=== PATIENT | female | born 1945 | race Caucasian/White ===

== ENCOUNTER 2016-10-08 15:01 | Emergency (ER) | payer OTHER ==
[~2016-10-08] VITALS: Ht 170.2 cm; Wt 66.2 kg
[~2016-10-08 15:01] MED LIST: AMBIEN 5 MG TABL5 M1 PO; B COMPLEX1 EACH PO; B-COMPLEX PLUS1 EACH PO; CALCIUM 500 +1 EAC5 PO; CELEXA 10 MG TA10 M1 PO; CENTRUM SILVER1 EAC4 PO; CLONAZEPAM 1 MG1 M1 PO; CRESTOR10 MG PO; MIRALAX17 GM PO; NOHOMEMEDICATIONS; NORCO 5-325 TA1 EACH PO; PERCOCET PO; PHENERGAN 25 MG25 M1 PO; VITAMIN B-1100 M1 PO; VITAMIN D1000 UNI2 PO; VITAMINC500 PO; ZOFRAN4 MG PO; ZOLPIDEM TART12.5 M1 PO
[2016-10-08] MEDS ORDERED: NAPROSYN500 MG PO (16:15)
[2016-10-08] MEDS ORDERED: NORFLEX100 MG PO (16:15)
[2016-10-08 16:37] VITALS: BP 145/78
== END 2016-10-08 16:38 | disposition home or self-care (01) ==
LOC: ER 15:01
DX: S46.911A Strain of unspecified muscle, fascia and tendon at shoulder and upper arm level, right arm, initial encounter (principal); R07.89 Other chest pain; I10 Essential (primary) hypertension; F41.9 Anxiety disorder, unspecified; F32.9 Major depressive disorder, single episode, unspecified; F10.99 Alcohol use, unspecified with unspecified alcohol-induced disorder; W18.39XA Other fall on same level, initial encounter; Y93.89 Activity, other specified; Y92.89 Other specified places as the place of occurrence of the external cause; Y99.8 Other external cause status

== ENCOUNTER → 2019-10-17 | Outpatient (CLI) | payer OTHER ==
[~2019-10-17] MED LIST changes: +BUTALB-APAP-CA1 EACH PO; +NAPROSYN500 MG PO; +NORFLEX100 MG PO
[2019-10-17 09:11] LABS: PROTIME 10.2 Seconds (9.3-11.4)
[2019-10-17 10:41] LABS: CSF GLUCOSE 54 mg/dL (40-70); CSF PROTEIN 46 mg/dL (15-45)
[2019-10-17 11:01] LABS: VOLUME 9 ml
[2019-10-17 11:04] LABS: CSF RBC 8 /mm3; CSF WBC 5 /mm3 (0-10)
[2019-10-19 13:08] LABS: CSF VDRL Non Reactive (Non Rea:<1:1)
== END ==
LOC: RAD 07:49
PROVIDERS: Specialist; ATTEND Radiology Vascular & Interventional Radiology
DX: A53.9 Syphilis, unspecified (principal)

== ENCOUNTER 2019-10-20 04:26 | Emergency (ER) | payer OTHER ==
[~2019-10-20] VITALS: Ht 170.2 cm; Wt 64.4 kg
[~2019-10-20 04:26] MED LIST changes: -BUTALB-APAP-CA1 EACH PO
[2019-10-20 05:38] LABS: CALCIUM 8.7 mg/dL (8.5-10.1); CREATININE 0.8 mg/dL (0.6-1.0); POTASSIUM 3.9 mmol/L (3.5-5.1)
[2019-10-20 06:04] LABS: ABSOLUTE NEUTROPHILS 8.3 thou/uL (1.4-8.2); BASOPHILS 0.1 % (0.0-2.0); EOSINOPHILS 0.2 % (0.0-3.0); HEMATOCRIT 34.4 % (37.0-47.0); HEMOGLOBIN 11.9 gm/dL (12.0-15.0); MCHC 34.5 g/dL (28.0-37.0); MCV 86.9 fL (80.0-100.0); MONOCYTES 3.4 % (1.0-8.0); PLATELET COUNT 225 thou/uL (150-400); POLYS 94.3 % (36.0-66.0); RBC 3.96 mil/uL (4.20-5.00); RDW 14.8 % (10.5-14.5); WBC 8.8 thou/uL (4.0-11.0)
[2019-10-20] MEDS ORDERED: BUTALB-APAP-CA1 EACH PO (06:43)
[2019-10-20 07:08] VITALS: BP 135/61
== END 2019-10-20 07:08 | disposition home or self-care (01) ==
LOC: ER 04:26
PROVIDERS: Emergency Medicine
DX: G97.1 Other reaction to spinal and lumbar puncture (principal); I10 Essential (primary) hypertension; Z79.899 Other long term (current) drug therapy
CPT/HCPCS: 62110; 62900

== ENCOUNTER 2019-12-10 16:22 | Emergency (ER) | payer OTHER ==
[~2019-12-10] VITALS: Ht 167.6 cm; Wt 63.0 kg
[~2019-12-10 16:22] MED LIST changes: +BUTALB-APAP-CA1 EACH PO
[2019-12-10] MEDS ORDERED: CLONAZEPAM 1 MG1 M1 PO (16:34)
[2019-12-10] MEDS ORDERED: AMBIEN 10 MG TA10 MG PO (16:34)
[2019-12-10] MEDS ORDERED: ESCITALOPRAM OX20 MG PO (16:35)
[2019-12-10] MEDS ORDERED: NORCO 5-325 TA1 EAC2 PO (18:14)
[2019-12-10 18:50] VITALS: BP 141/81
== END 2019-12-10 18:51 | disposition home or self-care (01) ==
LOC: ER 16:22
DX: S22.42XA Multiple fractures of ribs, left side, initial encounter for closed fracture (principal); I10 Essential (primary) hypertension; F32.9 Major depressive disorder, single episode, unspecified; F41.9 Anxiety disorder, unspecified; Z79.899 Other long term (current) drug therapy; W19.XXXA Unspecified fall, initial encounter; Y93.89 Activity, other specified; Y92.89 Other specified places as the place of occurrence of the external cause; Y99.8 Other external cause status